=== PATIENT | male | born 1960 | race Caucasian/White ===

== ENCOUNTER 2020-05-20 08:04 | Emergency (ER) | payer OTHER, SELFPAY ==
--- NOTE | ~2020-05-20 | XR_ITS ---
EXAMINATION: XR lumbar spine 2-3V EXAM DATE: 05/20/2020 09:35 INDICATION: Initial encounter following injury, with pain of the right low back. TECHNIQUE: Lumber spine frontal, lateral, lateral L5-S1 projections for interpretation. There is no prior study for comparison. FINDINGS: There is mild loss of the L2 vertebral body height without acute fracture line identified, more likely chronic but difficult to exclude acute finding. There is chronic L5 spondylolysis with a bout 1 cm anterolisthesis L5 on S1. Sacrum, sacroiliac joints, sacral arcuate lines are intact. Coupl e of left sided mid abdominal surgical clips. Nonobstructive bowel gas pattern. IMPRESSION: 1. Mild compression fracture at L2 without findings to suggest this is acute. 2. Chronic L5 spondylolysis, grade 2 anterolisthesis. Reviewed, dictated and finalized at location A.
[2020-05-20 08:21] VITALS: BP 159/97; PULSE 74; RESP 16; TEMP 37.1; O2SAT 99
[2020-05-20] MEDS: KETOROLAC (*BKC) 60 MG/2 ML VIAL IM (09:36)
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
[2020-05-20 10:54] VITALS: BP 134/88; PULSE 80; RESP 20; O2SAT 99
== END 2020-05-20 11:14 | disposition home or self-care (01) ==
PROVIDERS: Emergency Provider Emergency Medicine
DX: S39.012A Strain of muscle, fascia and tendon of lower back, initial encounter (principal); M43.06 Spondylolysis, lumbar region; W01.198A Fall on same level from slipping, tripping and stumbling with subsequent striking against other object, initial encounter
CPT/HCPCS: 72100; 96372; 99283; J1885